=== PATIENT | male | born 2000 | race Caucasian/White ===

== ENCOUNTER 2020-06-18 14:51 | Emergency (ER) | payer OTHER ==
[~2020-06-18] VITALS: Ht 167.6 cm; Wt 62.3 kg
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
[2020-06-18] MEDS ORDERED: NEOSPORIN OINT 0.9 GM PKT TOP ONE (15:45)
[2020-06-18] MEDS ORDERED: ACETAMINOPHEN 500 MG TAB PO ONE (15:45)
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
[2020-06-18 16:26] VITALS: BP 128/73
== END 2020-06-18 16:27 | disposition home or self-care (01) ==
LOC: M ED 14:51
DX: S40.012A Contusion of left shoulder, initial encounter (principal); S13.4XXA Sprain of ligaments of cervical spine, initial encounter; V49.49XA Driver injured in collision with other motor vehicles in traffic accident, initial encounter; Z77.098 Contact with and (suspected) exposure to other hazardous, chiefly nonmedicinal, chemicals

== ENCOUNTER 2021-03-03 09:27 | Emergency (ER) | payer OTHER ==
[~2021-03-03] VITALS: Ht 170.2 cm; Wt 65.8 kg
[2021-03-03] MEDS ORDERED: diphenhydrAMINE 50MG CAP PO ONE (10:45)
[2021-03-03 11:25] VITALS: BP 117/64
== END 2021-03-03 11:27 | disposition home or self-care (01) ==
LOC: M ED 09:27
DX: R23.2 Flushing (principal); T49.2X5A Adverse effect of local astringents and local detergents, initial encounter

== ENCOUNTER 2021-05-03 14:50 | Emergency (ER) | payer OTHER ==
[~2021-05-03] VITALS: Ht 167.6 cm; Wt 67.5 kg
[2021-05-03 14:51] VITALS: BP 126/68
[2021-05-03] MEDS ORDERED: CLOT1CRE56 TOP (15:50)
== END 2021-05-03 15:59 | disposition home or self-care (01) ==
LOC: M ED 14:50
DX: B35.0 Tinea barbae and tinea capitis (principal); B35.4 Tinea corporis; F90.9 Attention-deficit hyperactivity disorder, unspecified type; Z77.098 Contact with and (suspected) exposure to other hazardous, chiefly nonmedicinal, chemicals

== ENCOUNTER 2021-06-01 19:27 | Inpatient (IN) | payer OTHER ==
[~2021-06-01] VITALS: Ht 170.2 cm; Wt 69.0 kg
[~2021-06-01 19:27] MED LIST: CLOT1CRE56 TOP
[2021-06-01 20:22] LABS: HEMATOCRIT 38.9 % (42.0-52.0); HEMOGLOBIN 13.5 g/dl (13.5-17.5); MEAN CORPUSCULAR HEMOGLOBIN 28.7 pg (27.0-33.0); MEAN CORPUSCULAR HGB CONC 34.7 g/dl (32.0-36.5); MEAN CORPUSCULAR VOLUME 82.6 fl (80.0-96.0); PLATELET COUNT, AUTOMATED 310 10^3/uL (150-450); RED BLOOD COUNT 4.71 10^6/uL (4.30-6.10); WHITE BLOOD COUNT 9.2 10^3/uL (4.0-10.0)
[2021-06-01 20:45] LABS: AMPHETAMINES LEVEL URINE NEGATIVE (NEGATIVE); BARBITURATES URINE NEGATIVE (NEGATIVE); BENZODIAZEPINES URINE NEGATIVE (NEGATIVE); CANNABINOIDS URINE POSITIVE (NEGATIVE); COCAINE METABOLITE URINE NEGATIVE (NEGATIVE); METHADONE URINE NEGATIVE (NEGATIVE); OPIATES URINE NEGATIVE (NEGATIVE); PHENCYCLIDINE URINE NEGATIVE (NEGATIVE)
[2021-06-01 20:57] LABS: ACETAMINOPHEN LEVEL < 2.0 UG/ML (10.0-30.0); ALBUMIN 4.2 GM/DL (3.2-5.2); ALT/SGPT 31 U/L (12-78); BILIRUBIN,DIRECT 0.1 MG/DL (0.0-0.2); BILIRUBIN,TOTAL 0.4 MG/DL (0.2-1.0); BLOOD UREA NITROGEN 18 MG/DL (7-18); CALCIUM LEVEL 9.2 MG/DL (8.5-10.1); CARBON DIOXIDE LEVEL 29 MEQ/L (21-32); CHLORIDE LEVEL 105 MEQ/L (98-107); CREATININE FOR GFR 1.04 MG/DL (0.70-1.30); ETHYL ALCOHOL (ETHANOL) < 0.003 % (0.000-0.010); GLOMERULAR FILTRATION RATE > 60.0 (>60); GLUCOSE, FASTING 135 MG/DL (70-100); POTASSIUM SERUM 3.6 MEQ/L (3.5-5.1); SALICYLATE LEVEL < 1.7 MG/DL (5.0-30.0); SODIUM LEVEL 140 MEQ/L (136-145); TOTAL PROTEIN 7.8 GM/DL (6.4-8.2)
[2021-06-01 23:16] LABS: RSV AMPLIFICATION NEGATIVE (NEGATIVE)
[2021-06-02] MEDS ORDERED: HOME MED LIST COMPLETE! XX SCH (12:20)
[2021-06-02] MEDS ORDERED: traZODone 50 MG TAB PO PRN (13:20)
[2021-06-02] MEDS ORDERED: LORazepam 1 MG TAB PO PRN (13:20)
[2021-06-02] MEDS ORDERED: MOM 30ML SUSPENSION UDC PO PRN (13:20)
[2021-06-02] MEDS ORDERED: MAALOX 30 ML SUSP *UDC PO PRN (13:20)
[2021-06-02] MEDS ORDERED: IBUPROFEN 400MG TAB PO PRN (13:20)
[2021-06-02 15:20] VITALS: BP 130/93
--- NOTE | 2021-06-02 19:23 | ECGEPIP ---
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
[2021-06-03 06:42] VITALS: BP 115/57
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
== END 2021-06-03 13:38 | disposition home or self-care (01) | DRG 885 ==
LOC: M ED 19:27 → M ED INP 06-02 13:16 → M OR 06-02 15:13 → M PSY 06-02 15:18
PROVIDERS: ADMIT Psychiatry & Neurology Psychiatry; ATTEND Psychiatry & Neurology Psychiatry
DX: F32.0 Major depressive disorder, single episode, mild (principal); R45.851 Suicidal ideations; F43.10 Post-traumatic stress disorder, unspecified; F17.290 Nicotine dependence, other tobacco product, uncomplicated; Z88.8 Allergy status to other drugs, medicaments and biological substances; Z63.4 Disappearance and death of family member